=== PATIENT | female | born 1985 | race Hispanic/Latino ===

== ENCOUNTER 2019-08-06 10:33 | Emergency (ER) | payer MEDICAID, OTHER ==
[2019-08-06] MEDS ORDERED: SODIUM CHLORIDE 0.9% 1000ML 1,000 ML IV ONE (11:10)
[2019-08-06 11:15] LABS: BASOPHILS % (AUTO) 0.1 % (0.0-5.0); HEMATOCRIT 41.5 % (36-48); LYMPHOCYTES % (AUTO) 13.6 % (21.0-51.0); MEAN CORPUSCULAR HEMOGLOBIN 25.8 pg (27.0-33.0); MEAN CORPUSCULAR HGB CONC 33.5 g/dL (32.0-36.0); MEAN CORPUSCULAR VOLUME 77.1 fL (79-99); MONOCYTES % (AUTO) 6.8 % (3.0-13.0); NEUTROPHILS % (AUTO) 79.3 % (40.0-77.0); PLATELET COUNT (AUTO) 155 K/uL (130-400); RED BLOOD CELL COUNT(AUTO) 5.38 MIL/uL (4.00-5.50); RED CELL DISTRIBUTION WIDTH 14.6 % (11.0-15.5); WHITE BLOOD COUNT (AUTO) 9.5 K/uL (4.8-10.8)
[2019-08-06 11:32] LABS: CARBON DIOXIDE 29 mmol/L (21-32); CHLORIDE 105 mmol/L (101-111); CREATININE 0.4 mg/dL (0.5-1.5); GLOMERULAR FILTR. RATE CALC 193 mL/min (>60); GLUCOSE,RANDOM 112 mg/dL (70-105); POTASSIUM 3.8 mmol/L (3.5-5.1); SODIUM SERUM 143 mmol/L (136-145); UREA NITROGEN, BLOOD 12 mg/dL (7-18)
[2019-08-06 11:45] LABS: ALANINE AMINOTRANSFERASE 48 U/L (12-78); ALBUMIN 3.1 g/dL (3.5-5.0); ASPARTATE AMINOTRANSFERASE 28 U/L (10-37); BILIRUBIN,TOTAL 0.5 mg/dL (0.2-1.0); TOTAL PROTEIN, SERUM 7.9 g/dL (6.0-8.3)
[2019-08-06 11:48] LABS: THYROID STIMULATING HORMONE < 0.01 uIU/mL (0.36-3.74)
[2019-08-06 12:08] LABS: RAPID GROUP A STREP NEGATIVE (NEGATIVE)
[2019-08-06 12:25] LABS: APPEARANCE,URINE Clear (CLEAR); BILIRUBIN,URINE Negative (NEGATIVE); COLOR,URINE Yellow (YELLOW); GLUCOSE, URINE (UA) Negative (NEGATIVE); KETONES,URINE Negative (NEGATIVE); LEUKOCYTE ESTERASE ,URINE Negative (NEGATIVE); NITRATE,URINE Negative (NEGATIVE); OCCULT BLOOD,URINE Nonhemolyzed Trace (NEGATIVE); PROTEIN,URINE Negative (NEGATIVE)
[2019-08-06 12:45] LABS: BACTERIA,URINE Rare /HPF (None Seen); RBC,URINE 0-1 /HPF (0-1); SQUAMOUS EPITHELIAL CELL,UR Rare /HPF (0-2); WBC,URINE 0-1 /HPF (0-1)
== END 2019-08-06 14:15 | disposition home or self-care (01) ==
LOC: EDH 10:33
DX: J11.1 Influenza due to unidentified influenza virus with other respiratory manifestations (principal); E03.9 Hypothyroidism, unspecified; R11.10 Vomiting, unspecified; Z98.51 Tubal ligation status
CPT/HCPCS: 36415; 80053; 81001; 84439; 84443; 85025; 87804 ×2; 87880; 96360; 96361; 99285; J7030

== ENCOUNTER 2020-05-04 10:04 | Inpatient (IN) | payer OTHER ==
[~2020-05-04] VITALS: Ht 149.9 cm; Wt 47.1 kg
[2020-05-04 10:41] LABS: HEMATOCRIT 44.9 % (36-48); LYMPHOCYTES % (AUTO) 11.5 % (21.0-51.0); MEAN CORPUSCULAR HEMOGLOBIN 26.3 pg (27.0-33.0); MEAN CORPUSCULAR HGB CONC 33.9 g/dL (32.0-36.0); MEAN CORPUSCULAR VOLUME 77.5 fL (79-99); MONOCYTES % (AUTO) 4.7 % (3.0-13.0); NEUTROPHILS % (AUTO) 83.6 % (40.0-77.0); PLATELET COUNT (AUTO) 154 K/uL (130-400); RED BLOOD CELL COUNT(AUTO) 5.79 MIL/uL (4.00-5.50); RED CELL DISTRIBUTION WIDTH 13.7 % (11.0-15.5); WHITE BLOOD COUNT (AUTO) 6.4 K/uL (4.8-10.8)
[2020-05-04 10:42] LABS: APPEARANCE,URINE Clear (CLEAR); BILIRUBIN,URINE Negative (NEGATIVE); COLOR,URINE Dark Yellow (YELLOW); GLUCOSE, URINE (UA) Negative (NEGATIVE); KETONES,URINE 40 mg/dL (NEGATIVE); LEUKOCYTE ESTERASE ,URINE Trace (NEGATIVE); NITRATE,URINE Negative (NEGATIVE); OCCULT BLOOD,URINE Moderate (NEGATIVE); PROTEIN,URINE POS 1+ mg/dL (NEGATIVE)
[2020-05-04 10:44] LABS: HCG,QUAL RESULT NEGATIVE (NEGATIVE)
[2020-05-04 10:49] LABS: AMPHET/METH SCREEN,URINE NEGATIVE (NEGATIVE); BARBITURATE SCREEN, URINE NEGATIVE (NEGATIVE); BENZODIAZEPINES SCREEN,URINE NEGATIVE (NEGATIVE); CANNABINOID SCREEN,URINE NEGATIVE (NEGATIVE); COCAINE SCREEN,URINE NEGATIVE (NEGATIVE); OPIATE SCREEN,URINE NEGATIVE (NEGATIVE); PHENCYCLIDINE SCREEN,URINE NEGATIVE (NEGATIVE)
[2020-05-04 10:50] LABS: INR 1.15 (0.85-1.15); PARTIAL THROMBOPLASTIN TIME 28.9 SEC (26.3-35.5); PROTHROMBIN TIME 12.4 SEC (9.6-11.6)
[2020-05-04] MEDS ORDERED: HYDROCORTISONE SOD SUCCINATE 100 MG/2 ML VIAL ONE ×2 (10:50→21:44)
[2020-05-04] MEDS ORDERED: ONDANSETRON HCL 4 MG/2 ML VIAL ONE ×2 (10:50→22:01)
[2020-05-04] MEDS ORDERED: CEFTRIAXONE SODIUM 2 GM VIAL ONE (10:50)
[2020-05-04 11:01] LABS: ALANINE AMINOTRANSFERASE 91 U/L (12-78); ALBUMIN 3.7 g/dL (3.5-5.0); ASPARTATE AMINOTRANSFERASE 72 U/L (10-37); BILIRUBIN,DIRECT 0.3 mg/dL (0.0-0.3); BILIRUBIN,TOTAL 0.9 mg/dL (0.2-1.0); CARBON DIOXIDE 26 mmol/L (21-32); CHLORIDE 103 mmol/L (101-111); CREATINE KINASE, TOTAL 15 U/L (21-232); CREATININE 0.5 mg/dL (0.5-1.5); GLOMERULAR FILTR. RATE CALC 148 mL/min (>60); GLUCOSE,RANDOM 74 mg/dL (70-105); POTASSIUM 3.7 mmol/L (3.5-5.1); SODIUM SERUM 140 mmol/L (136-145); TOTAL PROTEIN, SERUM 8.3 g/dL (6.0-8.3); UREA NITROGEN, BLOOD 17 mg/dL (7-18)
[2020-05-04] MEDS ORDERED: PROPYLTHIOURACIL 50 MG TABLET PO SCH ×2 (11:15→17:00)
[2020-05-04] MEDS ORDERED: CEFTRIAXONE SODIUM 1 GM IVP SCH ×2 (11:15→23:00)
[2020-05-04] MEDS ORDERED: ONDANSETRON HCL 4 MG/2 ML VIAL IVP SCH (11:15)
[2020-05-04] MEDS ORDERED: SODIUM CHLORIDE 0.9% 500ML 500 ML IV SCH (11:15)
[2020-05-04 11:17] LABS: B-TYPE NATRIURETIC PEPTIDE 48 pg/mL (0-100)
[2020-05-04 11:18] LABS: T4 (THYROXINE) 39.5 ug/dL (4.7-13.3); THYROID STIMULATING HORMONE < 0.01 uIU/mL (0.36-3.74)
[2020-05-04 11:40] LABS: BACTERIA,URINE Few /HPF (None Seen); MUCUS,URINE Few LPF (None Seen); RBC,URINE 0-1 /HPF (0-1); SQUAMOUS EPITHELIAL CELL,UR Rare /HPF (0-2)
[2020-05-04] MEDS ORDERED: MORPHINE SULFATE 2 MG/ML 1ML SYG IM PRN (13:45)
[2020-05-04] MEDS ORDERED: PROPRANOLOL HCL 1 MG/ML VIAL IVP ONE (14:15)
[2020-05-04] MEDS ORDERED: IOHEXOL-350 75 ML VIAL IV ONE (15:03)
[2020-05-04] MEDS ORDERED: ACETAMINOPHEN 325 MG TAB PO PRN ×2 (15:45)
[2020-05-04] MEDS ORDERED: HYDROMORPHONE 1 MG/1 ML AMP IV PRN (15:45)
[2020-05-04] MEDS ORDERED: PROPRANOLOL HCL 1 MG/ML VIAL IVP PRN (16:30)
[2020-05-04 18:33] LABS: CRP QUANTITATIVE 10.5 mg/L (0.00-9.0)
[2020-05-04] MEDS: FAMOTIDINE/PF 20 MG/2 ML VIAL IV SCH (21:00)
[2020-05-04] MEDS ORDERED: HYDROCORTISONE SOD SUCCINATE 100 MG/2 ML VIAL IV SCH (21:00)
[2020-05-04] MEDS ORDERED: PROPRANOLOL HCL 20 MG TAB PO SCH (21:00)
[2020-05-04] MEDS ORDERED: FAMOTIDINE/PF 20 MG/2 ML VIAL IV ONE (21:44)
[2020-05-04] MEDS ORDERED: CEFTRIAXONE SODIUM 1 GM ONE (21:44)
[2020-05-04] MEDS ORDERED: MORPHINE SULFATE 2 MG/ML 1ML SYG ONE (22:05)
[2020-05-04] MEDS: PROPYLTHIOURACIL 50 MG TABLET PO SCH (22:30)
[2020-05-05] VITALS (20 sets, daily range): BP systolic 118–148; BP diastolic 52–79
[2020-05-05] MEDS: SODIUM CHLORIDE 0.9% 1000ML 1,000 ML IV SCH ×4 (01:45→20:18)
--- NOTE | 2020-05-05 04:03 | NUR ---
PATIENT UPDATE ADMITTED A 35 YR OLD FEMALE FOR THYROID STORM, THYROTOXICOSIS AND INTRACTABLE ABDOMINAL PAIN AND NAUSEA AND VOMITING. ALERT AND ORIENTED X 3, AMBULATORY. STATED THAT SHE HASN'T TAKEN HER THYROID MEDS FOR MORE THAN 6 MONTHS ALREADY, HAD BEEN OFF WORK BEC OF THE PANDEMIC. STARTED FEELING PALPITATIONS, DIZZY SPELLS, PANIC ATTACKS , INCREASED HEART RATE , ANXIETY WITH ABDOMINAL PAIN AND NAUSEA AND VOMITING. SHE SAID THAT SHE HAD THOSE THYROTOXICOSIS SYMPTOMS YEAR AND ENDED UP HAVING A PARTIAL THYROIDECTOMY DONE. TOLERATING CLEAR LIQUIDS, URINE LESS CONCENTRATED, HYDRATION WITH NS AT 100 CC/HR. WAS STARTED ON THE PTU AND INDERAL FROM ER. CALLED AND WAS UPDATED WITH THE PT'S OVERALL STATUS, CONCERNS ADDRESSED.
[2020-05-05] MEDS: ONDANSETRON HCL 4 MG/2 ML VIAL IV PRN ×2 (04:15→10:35)
[2020-05-05 04:17] LABS: BASOPHILS % (AUTO) 0.2 % (0.0-5.0); HEMATOCRIT 38.8 % (36-48); LYMPHOCYTES % (AUTO) 23.4 % (21.0-51.0); MEAN CORPUSCULAR HEMOGLOBIN 26.7 pg (27.0-33.0); MEAN CORPUSCULAR VOLUME 78.4 fL (79-99); MONOCYTES % (AUTO) 10.7 % (3.0-13.0); NEUTROPHILS % (AUTO) 65.5 % (40.0-77.0); PLATELET COUNT (AUTO) 122 K/uL (130-400); RED BLOOD CELL COUNT(AUTO) 4.95 MIL/uL (4.00-5.50); RED CELL DISTRIBUTION WIDTH 13.8 % (11.0-15.5); WHITE BLOOD COUNT (AUTO) 4.1 K/uL (4.8-10.8)
[2020-05-05 04:29] LABS: ALBUMIN 2.9 g/dL (3.5-5.0); BILIRUBIN,TOTAL 0.5 mg/dL (0.2-1.0); CREATININE 0.4 mg/dL (0.5-1.5); POTASSIUM 3.6 mmol/L (3.5-5.1); TOTAL PROTEIN, SERUM 6.7 g/dL (6.0-8.3)
[2020-05-05] MEDS: PROPYLTHIOURACIL 50 MG TABLET PO SCH ×4 (04:30→22:34)
--- NOTE | 2020-05-05 05:00 | NUR ---
COMFORT MEDICATED WITH ZOFRAN 4 MG IV AT 0400 BEFORE PT WAS GIVEN THE 200 MG OF PTU AT 0430. PT STATED THAT SHE FEELS UNCOMFORTABLE AFTER TAKING THE MED. THAT SHE DOESN'T LIKE THE TASTE THAT I HAVE HER TAKE APPLE JUICE OR ORANGE JUICE AFTER TAKING IT. ADMITTED THAT SHE TAKES METHIMAZOLE AND INDERAL PER HOME MED BUT SINCE IT'S BEEN MORE THAN 6 MONTHS THAT SHE HASN'T TAKEN IT, SHE'S UNABLE TO REMEMBER THE DOSAGE THAT SHE'S ON. NO COMPLAINTS OF ABDOMINAL PAIN, NO NAUSEA NOR VOMITING. HEART RATE CONTROLLED IN THE 90'S, DENIES PALPITATIONS. UP AD PEDRO, CONTINUES WITH THE HYDRATION.
[2020-05-05] MEDS: FAMOTIDINE/PF 20 MG/2 ML VIAL IV SCH ×2 (08:38→20:19)
[2020-05-05] MEDS ORDERED: PROPRANOLOL HCL 20 MG TAB PO SCH (09:00)
[2020-05-05] MEDS: CEFTRIAXONE SODIUM 1 GM IV SCH (10:12)
[2020-05-05] MEDS: PROPRANOLOL HCL 20 MG TAB PO SCH ×2 (13:13→20:54)
--- NOTE | 2020-05-05 13:52 | NUR ---
ALISSA SMITH SPOKE WITH PATIENT'S SPOUSE ENRIQUE FIORE ([phone]). PER SPOUSE PATIENT LIVES AT THE ADDRESS LISTED ON FILE WITH FAMILY. SPOUSE STATES SHE IS INDEPENDENT WITH ADLs, HAS NO DME AVAILABLE AT HOME. SPOUSE REQUESTS HE IS TO BE LISTED NEXT OF KIN/ DECISION MAKER. PATIENT'S SPOUSE FEELS SAFE GOING HOME POST DC. TENTATIVE DC PLAN IS TO BE DC HOME. SPOUSE TO TRANSPORT HOME VIA PRIVATE VEHICLE. CM TO FOLLOW UP. Addendum: 05/05/20 at 1355 by MACKENZIE KRAMER Amended: Links added.
[2020-05-05] MEDS: MORPHINE SULFATE 2 MG/ML 1ML SYG IV PRN (15:02)
[2020-05-06] MEDS: ONDANSETRON HCL 4 MG/2 ML VIAL IV PRN (03:07)
[2020-05-06 03:18] VITALS: BP 149/73
[2020-05-06 04:22] LABS: HEMATOCRIT 38.4 % (36-48); MEAN CORPUSCULAR HEMOGLOBIN 26.5 pg (27.0-33.0); MEAN CORPUSCULAR HGB CONC 34.1 g/dL (32.0-36.0); MEAN CORPUSCULAR VOLUME 77.6 fL (79-99); RED BLOOD CELL COUNT(AUTO) 4.95 MIL/uL (4.00-5.50); RED CELL DISTRIBUTION WIDTH 14.1 % (11.0-15.5); WHITE BLOOD COUNT (AUTO) 3.4 K/uL (4.8-10.8)
[2020-05-06 04:44] LABS: CARBON DIOXIDE 28 mmol/L (21-32); CHLORIDE 110 mmol/L (101-111); CREATININE 0.4 mg/dL (0.5-1.5); GLOMERULAR FILTR. RATE CALC 192 mL/min (>60); GLUCOSE,RANDOM 113 mg/dL (70-105); POTASSIUM 3.1 mmol/L (3.5-5.1); SODIUM SERUM 145 mmol/L (136-145); UREA NITROGEN, BLOOD 8 mg/dL (7-18)
[2020-05-06 04:48] LABS: THYROID STIMULATING HORMONE < 0.01 uIU/mL (0.36-3.74)
[2020-05-06 04:59] LABS: T4 (THYROXINE) 25.9 ug/dL (4.7-13.3)
[2020-05-06] MEDS ORDERED: POTASSIUM CHLORIDE 10% ELIXIR 20 MEQ/15 ML UDCUP PO PRN (05:15)
[2020-05-06] MEDS: POTASSIUM CHLORIDE 20 MEQ ERTAB PO PRN ×2 (05:33→07:57)
[2020-05-06] MEDS: SODIUM CHLORIDE 0.9% 1000ML 1,000 ML IV SCH ×2 (05:35→18:09)
[2020-05-06] MEDS: MAGNESIUM 2GM PREMIX 50ML 50 ML IV PRN ×2 (06:00→16:39)
[2020-05-06 07:00] VITALS: BP 149/76
--- NOTE | 2020-05-06 07:30 | NUR ---
REFUSAL OF ORAL POTASSIUM PATIENT REFUSING ORAL POTASSIUM AT THIS TIME. VOICED "I WOULD RATHER RECEIVE IV POTASSIUM." NOTIFIED THAT MEDICATION, WHEN ADMINISTERED IV THROUGH A PERIPHERAL LINE CAN CAUSE BURNING, STINGING, REDNESS, AND/OR PHLEBITIS Addendum: 05/06/20 at 1035 by JEET MOSLEY RN RN Amended: Links added.
[2020-05-06] MEDS: PROPRANOLOL HCL 20 MG TAB PO SCH ×3 (08:18→22:09)
[2020-05-06] MEDS: FAMOTIDINE/PF 20 MG/2 ML VIAL IV SCH ×2 (08:19→22:09)
[2020-05-06] MEDS: LIDOCAINE HCL-MPF 1% 2ML VIAL IJ PRN ×2 (08:19→16:40)
[2020-05-06] MEDS: POTASSIUM CHLORIDE 20MEQ/100ML 100 ML IV PRN ×2 (08:20→16:38)
[2020-05-06] MEDS: METHIMAZOLE 10 MG TAB PO SCH ×3 (08:20→22:10)
[2020-05-06 11:00] VITALS: BP 131/67
--- NOTE | 2020-05-06 11:00 | NUR ---
DR ARLEN MCKINLEY AT BEDSIDE TO ASSESS PATIENT. AT THIS TIME, PATIENT VOICES NO COMPLAINTS AND NO DISTRESS NOTED. 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
[2020-05-06] MEDS: CEFTRIAXONE SODIUM 1 GM IV SCH (11:03)
[2020-05-06 13:37] VITALS: BP 135/89
--- NOTE | 2020-05-06 13:39 | NUR ---
ASSESSMENT FINDINGS PRIOR TO GIVING PROPANOLOL Addendum: 05/06/20 at 1343 by JEET MOSLEY RN RN Amended: Links added.
[2020-05-06 15:19] VITALS: BP 138/80
[2020-05-06 16:21] LABS: MAGNESIUM 1.8 mg/dL (1.80-2.40); POTASSIUM 3.2 mmol/L (3.5-5.1)
--- NOTE | 2020-05-06 17:06 | NUR ---
medication teaching instructed on need for potassium and magnesium replacement due to low electrolyte levels. notified that administration via peripheral IV can cause slight burning, stinging. notified that magnesium administration can cause flushing, low blood pressure and to notify staff for assistance in getting out of bed to bath room . call light in reach. voiced understanding to all teaching. Addendum: 05/06/20 at 1710 by JEET MOSLEY RN RN Amended: Links added.
--- NOTE | 2020-05-06 17:30 | NUR ---
Report given to RACHELLE Harrell, transferred to room 423 via wheelchair
[2020-05-06 20:00] VITALS: BP 116/46
[2020-05-07] VITALS: BP 121/62
[2020-05-07] MEDS: ONDANSETRON HCL 4 MG/2 ML VIAL IV PRN (02:42)
[2020-05-07] MEDS: MORPHINE SULFATE 2 MG/ML 1ML SYG IV PRN (02:43)
[2020-05-07 04:00] VITALS: BP 130/67
[2020-05-07 05:41] LABS: BASOPHILS % (AUTO) 0.2 % (0.0-5.0); HEMATOCRIT 38.9 % (36-48); LYMPHOCYTES % (AUTO) 15.7 % (21.0-51.0); MEAN CORPUSCULAR HGB CONC 33.7 g/dL (32.0-36.0); MEAN CORPUSCULAR VOLUME 77.2 fL (79-99); MONOCYTES % (AUTO) 8.8 % (3.0-13.0); NEUTROPHILS % (AUTO) 75.1 % (40.0-77.0); PLATELET COUNT (AUTO) 106 K/uL (130-400); RED BLOOD CELL COUNT(AUTO) 5.04 MIL/uL (4.00-5.50); RED CELL DISTRIBUTION WIDTH 13.6 % (11.0-15.5); WHITE BLOOD COUNT (AUTO) 4.8 K/uL (4.8-10.8)
[2020-05-07 06:14] LABS: CARBON DIOXIDE 26 mmol/L (21-32); CHLORIDE 104 mmol/L (101-111); CREATININE 0.3 mg/dL (0.5-1.5); GLOMERULAR FILTR. RATE CALC 268 mL/min (>60); GLUCOSE,RANDOM 81 mg/dL (70-105); POTASSIUM 3.7 mmol/L (3.5-5.1); SODIUM SERUM 140 mmol/L (136-145); UREA NITROGEN, BLOOD 7 mg/dL (7-18)
[2020-05-07 06:15] LABS: THYROID STIMULATING HORMONE < 0.01 uIU/mL (0.36-3.74)
[2020-05-07] MEDS: SODIUM CHLORIDE 0.9% 1000ML 1,000 ML IV SCH (06:21)
[2020-05-07] MEDS ORDERED: FAMOTIDINE 20MG TAB 20 MG TAB ONE (07:11)
[2020-05-07] MEDS: CEFTRIAXONE SODIUM 1 GM IV SCH (07:16)
[2020-05-07] MEDS: METHIMAZOLE 10 MG TAB PO SCH (07:16)
[2020-05-07] MEDS: PROPRANOLOL HCL 20 MG TAB PO SCH (07:17)
--- NOTE | 2020-05-07 07:25 | NUR ---
ASSESSMENT PT IS AAOX3, DENIES CP DENIES SOB DENIES NV NO COMPLAINTS AT THIS TIME, RESTING IN BED, CALL LIGHT WITHIN REACH.
[2020-05-07 08:30] VITALS: BP 138/66
[2020-05-07] MEDS ORDERED: FAMOTIDINE 20MG TAB 20 MG TAB PO SCH (09:00)
[2020-05-07] MEDS ORDERED: PROP60CA2 PO (11:09)
[2020-05-07] MEDS ORDERED: METHI10 PO (11:09)
--- NOTE | 2020-05-07 11:40 | NUR ---
DC PT VERBALIZES DC INSTRUCTIONS AGREES TO TAKE MEDS ORDERED AGREES TO FOLLOW UP WITH PRIMARY. ALL QUESTIONS ANSWERED, PIV REMOVED CATH TIP INTACT TELE PACK REMOVED AWAITING RIDE.
== END 2020-05-07 12:15 | disposition home or self-care (01) | DRG 645 ==
LOC: EDH 10:04 → EDHIP 10:05 → 2DH 05-05 01:05 → 4DH 05-06 17:38
PROVIDERS: ADMIT Hospitalist; ATTEND Hospitalist
DX: E05.91 Thyrotoxicosis, unspecified with thyrotoxic crisis or storm (principal); R00.0 Tachycardia, unspecified; E03.9 Hypothyroidism, unspecified; E04.9 Nontoxic goiter, unspecified; Z91.19 Patient's noncompliance with other medical treatment and regimen
CPT/HCPCS: 36415; 71045; 74177; 76536; 80048; 80053; 80076; 80305; 81001; 81025; 82550; 83036; 83605; 83690; 83735; 83880; 84132; 84145; 84436; 84443; 84445; 84480; 84484; 85025; 85027; 85610; 85651; 85730; 86140; 87040; 87426; 87804; 93005; 99291; G0378; J0696; J1720; J1800; J2405; J3475; J3480; J3490; J7030; Q9967; U0003